=== PATIENT | male | born 1950 | race Two or more races ===

== ENCOUNTER → 2024-11-11 | Outpatient (CLI) | payer BC ==
[~2024-11-11] VITALS: Ht 167.6 cm; Wt 88.9 kg
[2024-11-11] MEDS: REGADENOSON 0.4 MG/5 ML SYRG IV ONE ×2 (12:16→12:17)
--- NOTE | 2024-11-12 15:03 | DVHSR ---
APPROVED REPORT Exam: Nuclear Stress Test Indication: HTN BMI: 0 Medical History Medical History: DM, HTN, HLD Allergies: NKDA Stress Test Details Stress Test: Pharmacologic stress testing performed using 0.4 mg of regadenoson per 5 mL given IV ov er 10 seconds. HR Resting HR: 59 bpmMax Heart Rate (APMHR): 149.648975 bpm Max HR Achieved: 90 bpmTarget HR (85% APMHR): 126.692724 bpm % of APMHR: 60.40 Recovery HR: 69 bpm BP Resting BP: 180/72 mmHg Recovery BP: 164/75 mmHg ECG Resting ECG: Sinus Rhythm Clinical Reason for Termination: Completed protocol Nurse Comments Recieved pt. from [employer]. A/Ox4 on RA. Connected to hospital monitor, VS stable. PIV flushes well. Reviewed POC. Pt. verbalized understanding of procedure including risks and side ef fects, agrees for stress testing. Lexiscan stress test performed per protocol. [employer] administered [employer]. Pt. tolerated well . Pt. stable, no change on exam. VS returned to baseline. Transferred to [employer] via wheelchair w/ te ch. Stress ECG Conclusion lvef 65% normal perfusion, no severe ischemia infierior wall artifact noted normal ecg pattern NM EXAM: Myocardial Perfusion REST/STRESS Imaging Protocol: Rest Tc-99m/Stress Tc-99m 1 day Resting Data Rest SPECT myocardial perfusion imaging was performed in supine position 60 minutes following the int ravenous injection of 11.5 mCi of Tc-99m Sestamibi. Time of rest injection: 1100 Date: 11/11/2024 Time of rest imagin Date: 11/11/2024 Administration Route: IV Administration Site: Right Arm Pharmacologic Stress Pharmacologic stress test was performed by injecting Regadenoson 0.4 mg IV push followed by the intra venous injection of 35 mCi of Tc-99m Sestamibi. Time of stress injection: 1216 Date: 11/11/2024 Time of stress imagin Date: 11/11/2024 Administration Route: IV Administration Site: Right Arm Gated Stress SPECT was performed 60 minutes after stress injection. The images were gated to evaluate regional wall motion and calculate left ventricular ejection fracti on. Stress only was performed in the Supine position. Nuclear Conclusion Nuclear Findings: negative for ischemia Left Ventricular Function: normal lvef 65% normal perfusion, no severe ischemia infierior wall artifact noted normal ecg pattern
== END | disposition home or self-care (01) ==
LOC: XYW 10:43
PROVIDERS: ATTEND Specialist
DX: Z01.810 Encounter for preprocedural cardiovascular examination (principal); I10 Essential (primary) hypertension; E11.9 Type 2 diabetes mellitus without complications; E78.5 Hyperlipidemia, unspecified
CPT/HCPCS: 93017; J2785; 78452